=== PATIENT | female | born 1995 | race Caucasian/White ===

== ENCOUNTER → 2017-02-09 | Outpatient (CLI) | payer MEDICAID ==
[~2017-02-09] MED LIST: ALLEGRA 180MG180 MG PO; ELAVIL25 MG PO; FLEXERIL5 MG PO; FOCALIN XR20 MG PO; INTUNIV3 MG PO; LEXAPRO 10MG10 MG PO; OMEPRAZOLE20 MG PO; OPCON-A 0.027%-15 M1 OP; ORTHO-CYCLEN 351 TA1 PO; PRENATAL1 TA5 PO; RANITIDINE HCL150 M1 PO; ULTRAM 50MG TAB50 MG PO
== END ==
LOC: LAB 15:26
DX: D64.89 Other specified anemias (principal); R51 Headache; E03.8 Other specified hypothyroidism; E04.9 Nontoxic goiter, unspecified

== ENCOUNTER → 2017-03-23 | Outpatient (CLI) | payer MEDICAID ==
[2016-08-05 19:52] VITALS: BP 107/64
== END ==
LOC: LAB 16:02
DX: G43.009 Migraine without aura, not intractable, without status migrainosus (principal); R53.83 Other fatigue; F41.8 Other specified anxiety disorders; E03.8 Other specified hypothyroidism

== ENCOUNTER → 2017-06-02 | Outpatient (CLI) | payer MEDICAID ==
[2016-08-05 19:52] VITALS: BP 107/64
== END ==
LOC: LAB 17:13
DX: R35.0 Frequency of micturition (principal)

== ENCOUNTER → 2017-07-27 | Outpatient (CLI) | payer MEDICAID ==
[2016-08-05 19:52] VITALS: BP 107/64
== END ==
LOC: LAB 15:12
DX: R30.0 Dysuria (principal); Z20.2 Contact with and (suspected) exposure to infections with a predominantly sexual mode of transmission; H10.9 Unspecified conjunctivitis
CPT/HCPCS: Q0111

== ENCOUNTER → 2017-11-24 | Outpatient (CLI) | payer MEDICAID ==
[2016-08-05 19:52] VITALS: BP 107/64
[2017-11-24 18:07] LABS: BASO # 0.1 (0.02-0.10); EOS # 0.1 (0.04-0.40); HEMATOCRIT 37.7 % (35.0-45.0); HEMOGLOBIN 12.7 g/dL (12.0-15.0); LYMPH# 1.9 (1.20-3.40); MEAN CELL VOLUME 88 fl (78-95); MEAN CORPUSCULAR HEMOGLOBIN 30 pg (26-32); MEAN CORPUSCULAR HGB CONC 34 g/dL (33-37); MEAN PLATELET VOLUME 8.9 fl (7.4-10.4); MONO # 0.7 (0.10-0.60); NEU # 3.6 (1.40-6.50); PLATELET COUNT 309 K/mm3 (130-400); RED CELL DISTRIBUTION WIDTH 12.5 % (11.5-14.5); WHITE BLOOD COUNT 6.4 K/mm3 (4.8-10.8)
[2017-11-24 18:12] LABS: ALBUMIN 4.5 g/dL (3.5-5.0); CALCIUM 9.2 mg/dL (8.4-10.2); POTASSIUM 3.9 mmol/L (3.6-5.0); TOTAL BILIRUBIN 0.4 mg/dL (0.2-1.3); TOTAL PROTEIN 8.7 g/dL (6.3-8.2)
[2017-11-24 18:16] LABS: PH-URINE 5.5 (5.0 - 8.0); URINE APPEARANCE HAZY; URINE BILIRUBIN NEGATIVE (NEGATIVE); URINE COLOR YELLOW; URINE GLUCOSE NEGATIVE (NEGATIVE); URINE KETONE NEGATIVE (NEGATIVE); URINE PROTEIN(semi-quant) NEGATIVE (NEGATIVE)
[2017-11-24 18:17] LABS: URINE BLOOD NEGATIVE (NEGATIVE); URINE LEUKOCYTE ESTERASE 1+ (NEGATIVE); URINE NITRATE NEGATIVE (NEGATIVE); URINE UROBILINOGEN NORMAL (NORMAL)
== END ==
LOC: LAB 17:40
PROVIDERS: Nurse Practitioner Family
DX: G43.009 Migraine without aura, not intractable, without status migrainosus (principal); R53.83 Other fatigue; F41.8 Other specified anxiety disorders; K81.9 Cholecystitis, unspecified; Z88.8 Allergy status to other drugs, medicaments and biological substances

== ENCOUNTER → 2018-01-04 | Outpatient (CLI) | payer MEDICAID ==
[2016-08-05 19:52] VITALS: BP 107/64
== END ==
LOC: LAB 17:02
DX: Z34.90 Encounter for supervision of normal pregnancy, unspecified, unspecified trimester (principal); Z88.8 Allergy status to other drugs, medicaments and biological substances

== ENCOUNTER 2018-01-06 08:33 | Emergency (ER) | payer MEDICAID ==
[~2018-01-06] VITALS: Ht 165.1 cm; Wt 61.8 kg
[2018-01-06 09:43] LABS: EOS # 0.1 (0.04-0.40); EOS % 3.3 % (0.1-4.0); HEMATOCRIT 38.1 % (35.0-45.0); HEMOGLOBIN 12.8 g/dL (12.0-15.0); LYMPH# 0.9 (1.20-3.40); MEAN CELL VOLUME 87 fl (78-95); MEAN CORPUSCULAR HEMOGLOBIN 29 pg (26-32); MEAN CORPUSCULAR HGB CONC 34 g/dL (33-37); MEAN PLATELET VOLUME 9.2 fl (7.4-10.4); MONO # 0.4 (0.10-0.60); NEU # 1.6 (1.40-6.50); PLATELET COUNT 197 K/mm3 (130-400); RED BLOOD COUNT 4.39 M/mm3 (4.10-5.30); RED CELL DISTRIBUTION WIDTH 13.5 % (11.5-14.5)
[2018-01-06 09:45] LABS: BUN/CREATININE RATIO 27.7 (6.0-26.0); CALCIUM 8.5 mg/dL (8.4-10.2); POTASSIUM 4.1 mmol/L (3.6-5.0)
[2018-01-06 10:27] LABS: URINE APPEARANCE CLEAR; URINE BILIRUBIN NEGATIVE (NEGATIVE); URINE BLOOD NEGATIVE (NEGATIVE); URINE COLOR YELLOW; URINE GLUCOSE NEGATIVE (NEGATIVE); URINE KETONE 2+ (NEGATIVE); URINE LEUKOCYTE ESTERASE NEGATIVE (NEGATIVE); URINE NITRATE NEGATIVE (NEGATIVE); URINE PROTEIN(semi-quant) TRACE mg/dL (NEGATIVE); URINE UROBILINOGEN NORMAL (NORMAL)
[2018-01-06 11:37] VITALS: BP 95/78
== END 2018-01-06 11:34 | disposition home or self-care (01) ==
LOC: ED 08:33
PROVIDERS: Nurse Practitioner Family
DX: O20.0 Threatened abortion (principal); Z3A.01 Less than 8 weeks gestation of pregnancy; O99.011 Anemia complicating pregnancy, first trimester; Z88.8 Allergy status to other drugs, medicaments and biological substances; O99.341 Other mental disorders complicating pregnancy, first trimester; F90.9 Attention-deficit hyperactivity disorder, unspecified type
CPT/HCPCS: 13313; A4353

== ENCOUNTER → 2018-03-12 | Outpatient (CLI) | payer MEDICAID | LOC: LAB 14:47 | DX: O03.4 Incomplete spontaneous abortion without complication (principal) ==

== ENCOUNTER → 2018-03-16 | Outpatient (CLI) | payer MEDICAID | LOC: LAB 13:16 | DX: Z32.00 Encounter for pregnancy test, result unknown (principal) ==

== ENCOUNTER → 2019-06-03 | Outpatient (CLI) | payer MEDICAID | LOC: RAD 10:39 | DX: M79.89 Other specified soft tissue disorders (principal) ==

== ENCOUNTER → 2024-07-17 | Outpatient (CLI) | payer MEDICAID | LOC: RAD 10:06 | DX: G89.29 Other chronic pain (principal); M25.562 Pain in left knee ==